=== PATIENT | male | born 1960 | race Caucasian/White ===

== ENCOUNTER → 2022-06-16 07:33 | Outpatient (CLI) | payer BC, SELFPAY ==
[2022-06-16 08:49] LABS: Add Manual Diff / Slide Review NO; Basophils Absolute Auto 0 /uL (0-100); Basophils Percent Auto 0.5 % (0-2); Eosinophils Absolute Auto 0 /uL (0-450); Eosinophils Percent Auto 0.6 % (2-4); Hematocrit 43.8 % (41-53); Lymphocytes Absolute Auto 2200 /uL (1100-4500); Lymphocytes Percent Auto 33.8 % (25-40); Mean Corpuscular HGB Conc 34.2 % (30-36); Mean Corpuscular Hemoglobin 28.2 PG (26-34); Mean Corpuscular Volume 82.5 fL (80-100); Monocytes Absolute Auto 500 /uL (0-900); Monocytes Percent Auto 7.5 % (3-14); Neutrophils Absolute Auto 3700 /uL (1500-7000); Neutrophils Percent Auto 57.6 % (50-75); Platelet Count 222 X10^3/uL (150-400); Red Blood Cell Count 5.31 X10^6/uL (4.5-5.9); Red Cell Distribution Width 14.7 % (11.6-14.8); White Blood Cell Count 6.5 X10^3/uL (4.5-11.0)
[2022-06-16 09:31] LABS: Alanine Aminotransferase 18 IU/L (<50); Albumin 4.5 g/dL (3.5-5.0); Albumin Globulin Ratio 1.4 (1.0-2.8); Alkaline Phosphatase 88 U/L (38-126); Aspartate Aminotransferase 26 IU/L (17-59); BUN Creatinine Ratio 18.3 (6-22); Bilirubin Total 0.8 mg/dL (0.2-1.3); Blood Urea Nitrogen 15 mg/dL (9-20); Calcium 9.2 mg/dL (8.4-10.2); Carbon Dioxide 25 mmol/L (22-32); Chloride 103 mmol/L (98-107); Cholesterol 184 mg/dL (140-199); Estimated Glomerular Filt Rate > 60 mL/min (>60); Globulin 3.3 g/dL (1.7-4.1); Glucose 103 mg/dL (80-110); HDL Cholesterol 29 mg/dL (40-60); HEMOLYSIS < 15 (0-50); LDL Cholesterol Calculated 98 mg/dL (<100); Potassium 3.9 mmol/L (3.4-5.1); Sodium 140 mmol/L (137-145); Total Protein 7.8 g/dL (6.3-8.2); Triglycerides 283 mg/dL (35-150)
[2022-06-16 09:55] LABS: Prostate Specific Antigen Scrn 2.14 ng/mL (0.1-4.0)
[2022-06-16 11:45] LABS: TSH w/ Reflex to FT4 1.53 uIU/mL (0.47-4.68)
== END ==
PROVIDERS: PCP Internal Medicine; Referring Provider Internal Medicine; Visit Provider Internal Medicine
DX: Z13.6 Encounter for screening for cardiovascular disorders (principal); Z12.5 Encounter for screening for malignant neoplasm of prostate; I10 Essential (primary) hypertension; R53.83 Other fatigue
CPT/HCPCS: 36415; 80053; 80061; 84443; 85025; G0103

== ENCOUNTER → 2022-07-29 09:06 | Outpatient (CLI) | payer BC, SELFPAY ==
[2022-07-29 11:31] LABS: COVID19 -Nasal RAPID Negative (Negative)
== END ==
PROVIDERS: PCP Internal Medicine; Visit Provider Surgery
DX: Z01.812 Encounter for preprocedural laboratory examination (principal); Z20.822 Contact with and (suspected) exposure to COVID-19
CPT/HCPCS: 87635; C9803

== ENCOUNTER 2022-07-30 07:39 | Day surgery (SDC) | payer BC, SELFPAY ==
--- NOTE | 2022-07-30 | PATH_ITS ---
[facility] Accession Number: [id number] No. of containers..04 Tissue . 01 Material submitted: . PART A: colon - PROXIMAL TRANSVERSE COLON POLYP PART B: colon - DESCENDING COLON POLYP PART C: sigmoid colon - SIGMOID COLON POLYP PART D: rectum - RECTAL POLYP . 01 Diagnosis: A. Proximal Transverse Colon, Polyp, Biopsy: Tubular adenoma. . B. Descending Colon Polyp, Biopsy: Tubular adenoma. . C. Sigmoid Colon Polyp, Biopsy: Tubular adenoma. . D. Rectal Polyp, Biopsy: Hyperplastic polyp. MRV 08/05/2022 1314 Local . 01 Electronically signed: . Mary Tan MD, Pathologist NPI- [id number] . 01 Gross description: . Part A: PROXIMAL TRANSVERSE COLON POLYP: Received in formalin are 4 fragment(s) of herman, soft tissue measuring 0.1 x 0.1 x 0.1 cm to 0.4 x 0.4 x 0.2 cm submitted entirely in 1 cassette(s) Part B: DESCENDING COLON POLYP: Received in formalin are 3 fragment(s) of herman, soft tissue measuring 0.2 x 0.2 x 0.2 cm to 0.5 x 0.3 x 0.2 cm submitted entirely in 1 cassette(s) Part C: SIGMOID COLON POLYP: Received in formalin is 1 fragment(s) of herman, soft tissue measuring 0.7 x 0.6 x 0.6 cm submitted entirely in 1 cassette(s) Part D: RECTAL POLYP: Received in formalin is 1 fragment(s) of herman, soft tissue measuring 0.7 x 0.7 x 0.5 cm submitted entirely in 1 cassette(s) /KRAIG 08/03/2022 2237 Local . 01 Pathologist provided ICD-10: D12.3, D12.4, D12.5, D12.8 . 01 CPT . 876624, 368041, 127027, 816974 Specimen Comment: A courtesy copy of this report has been sent to [phone] Performed at: 01 [facility] [address] [place] [address] [id number] MD Wyatt Ohara MD Phone: [phone]
[2022-07-30 08:00] VITALS: BP 160/95; PULSE 85; RESP 16; TEMP 36.4; O2SAT 97; BMI 34.9
[2022-07-30] MEDS: LACTATED RINGERS 1,000 ML 42 ML IV (08:14)
--- NOTE | 2022-07-30 09:15 | PM.HP.1 ---
History of Present Illness History of Present Illness Date Patient Seen: 07/30/22 Time Patient Seen: 09:15 Chief complaint: Colonoscopy Narrative: Jaime is a 62-year-old man who is here for colonoscopy. He has never had before. He has no family history of colon cancer. Denies rectal bleeding or melena. Patient History Medical History (Updated 07/30/22 @ 09:16 by Ethan Gonzalez MD) BPH w urinary obs/LUTS Chronic back pain (~1994) Essential hypertension Foot pain (~2017) Restless leg syndrome (~1999) Vision disorder Surgical History No pertinent past surgical history Family & Social History Family History (Updated 11/30/21 @ 21:40 by Noy Augustine) Father History of heart disease Mother Pneumonia Social History: household members spouse Tobacco & Substance use: Smoking Status Former smoker alcohol intake current alcohol intake frequency a few times a week Substance Use Type does not use Meds Home Medications and Allergies Home Medications Medication Instructions Recorded Confirmed Type lisinopril 20 mg tablet 20 mg PO DAILY #90 tabs 06/19/22 07/30/22 Rx Allergies Allergy/AdvReac Type Severity Reaction Status Date / Time shellfish derived Allergy Intermediate Nausea/Vomi Verified 07/30/22 07:51 ting Exam Vital Signs (past 8 hours): - 07/30/22 08:00 Temperature 97.6 F Pulse Rate 85 Respiratory Rate 16 Blood Pressure 160/95 H Pulse Oximetry 97 Oxygen Delivery Method Room Air Oxygen Delivery Method Room Air Narrative Exam Narrative: Abdomen soft Const General: No acute distress Assessment & Plan Assessment and plan (1) Colon cancer screening: Status: Acute Plan We reviewed the risks, benefits and rationale for colonoscopy for colon cancer screening and he would like to proceed. Time Spent With Patient Critical Care time: I spent a total of [] minutes of critical care time on this patient's care today; this time is exclusive of procedural time.
[2022-07-30 09:49] VITALS: BP 129/81; PULSE 74; RESP 16; TEMP 36.4; O2SAT 96
--- NOTE | 2022-07-30 09:49 | P.OP.COLON_ITS ---
Operative Date/Time/Diagnoses Date of procedure: 07/30/22 Time of procedure: 09:49 Pre-op diagnosis: Colon cancer screening Post-op diagnosis: same Procedure & Clinicians Study performed: Colonoscopy Same procedure as scheduled: Yes Surgeon: Ethan Gonzalez Procedure Notes Procedure in detail: Surgeon: Ethan Gonzalez MD Anesthesia: Ivy Graf CRNA Procedure: The patient was brought to the endoscopy suite, placed in left lateral decubitus position. The patient was connected to monitoring devices. A time-out was performed. Sedation was administered. Once the patient was adequately sedated, a digital rectal exam was performed and was normal. The scope was then inserted and advanced to the cecum where the appendiceal orifice was identified and photographed. The scope was then slowly withdrawn over greater than 6 minutes. The mucosa was thoroughly inspected. There was extens chris pandiverticulosis. There was a 6 mm polyp in the proximal transverse colon removed with a cold snare. There was a 6 mm polyp in the descending colon removed with a cold snare. There was an 8 mm polyp in the descending colon removed with a cold snare and 7 mm polyp in the distal rectum seen on retroflexion and removed with cold snare. The scope was straightened and removed. The patient was awakened and brought to recovery. Scope withdrawal time: 17 minutes Sedation time: 22 minutes EBL: 5 mL Findings: Extensive pandiverticulosis and proximal transverse, descending, sigmoid and rectal polyps Post-procedure Disposition: PACU
[2022-07-30 09:58] VITALS: BP 140/93; PULSE 83; RESP 14; O2SAT 97
[2022-07-30 09:59] VITALS: BP 148/90; PULSE 78; RESP 14; TEMP 36.4; O2SAT 95
[2022-07-30 10:08] VITALS: BP 151/93; PULSE 79; RESP 16; TEMP 36.4; O2SAT 95
== END 2022-07-30 10:12 | disposition home or self-care (01) ==
PROVIDERS: PCP Internal Medicine; Referring Provider Surgery; Visit Provider Surgery
PROC: 0DJD8ZZ Inspection of Lower Intestinal Tract, Via Natural or Artificial Opening Endoscopic (ICD-10-PCS; CPT 45378; principal; 2022-07-30 08:45)
DX: Z12.11 Encounter for screening for malignant neoplasm of colon (principal); K57.30 Diverticulosis of large intestine without perforation or abscess without bleeding; D12.3 Benign neoplasm of transverse colon; D12.4 Benign neoplasm of descending colon; D12.5 Benign neoplasm of sigmoid colon; K62.1 Rectal polyp
CPT/HCPCS: 45385; J2704